=== PATIENT | female | born 1955 | race Two or more races ===

== ENCOUNTER 2022-12-07 01:17 | Emergency (ER) | payer MEDICAID, OTHER ==
[~2022-12-07] VITALS: Ht 154.9 cm; Wt 66.8 kg
[2022-12-07] MEDS ORDERED: ALPRAZolam 0.5 MG TAB PO ONE (02:00)
[2022-12-07 02:08] LABS: Basophils # (auto) 0 10 ^3/uL (0-0.2); Basophils % (auto) 0.2 % (0.0-2.0); Eosinophils # (auto) 0.1 10 ^3/uL (0-0.8); Eosinophils % (auto) 1.4 % (0.0-7.0); Hemoglobin 12.6 g/dL (12.2-16.2); Lymphocytes % (auto) 50.7 % (10.0-50.0); Mean Corpuscular Hemoglobin 32.7 pg (28.0-32.0); Mean Corpuscular Volume 96.2 fL (80.0-100.0); Monocytes # (auto) 0.3 10 ^3/uL (0-1.3); Monocytes % (auto) 8.1 % (0.0-12.0); Neutrophils # (auto) 1.6 10 ^3/uL (1.6-8.6); Neutrophils % (auto) 39.6 % (37.0-80.0); Nucleated Red Blood Cells % 0.1 %; Red Blood Cells 3.85 10^6/uL (4.0-5.20); Red Cell Distribution Width 12.5 % (11.8-14.3)
[2022-12-07 02:09] LABS: Albumin 3.6 g/dL (3.4-5.0); BUN/Creatinine Ratio 23.3 (10.0-20.0); Calcium 8.3 mg/dL (8.5-10.1); Magnesium 1.9 mg/dL (1.6-2.6); Potassium 3.1 mmol/L (3.5-5.1)
[2022-12-07 02:11] LABS: Bilirubin, Total 0.7 mg/dL (0.2-1.0); Total Protein 7.1 g/dL (6.4-8.2)
[2022-12-07 02:24] LABS: Partial Thromboplastin Time 23.6 SEC (24.5-34.5)
[2022-12-07] MEDS ORDERED: POTASSIUM CHL 20 Meq TABLET PO ONE (03:45)
[2022-12-07 06:01] VITALS: BP 101/65
== END 2022-12-07 07:13 | disposition home or self-care (01) ==
LOC: ER 01:17
DX: R07.89 Other chest pain (principal); E78.5 Hyperlipidemia, unspecified; Z79.899 Other long term (current) drug therapy
CPT/HCPCS: 36415; 71045; 80053; 83735; 83880; 84484; 85025; 85610; 85730; 93005